=== PATIENT | male | born 1985 | race Caucasian/White ===

== ENCOUNTER 2019-08-25 08:54 | Emergency (ER) | payer OTHER ==
[~2019-08-25] VITALS: Ht 165.1 cm; Wt 97.1 kg
--- OUTSIDE RECORDS SUMMARY | 2019-08-25 08:58 | XMS ---
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 Ciara has no Care Guidelines for this patient. [facility] VISIT COUNT (12 MO.) 1 KAVIN Bernstein TOTAL 1 NOTE: Visits indicate total known visits. ED/C VISIT TRACKING (12 MO.) 08/25/2019 08:55 [facility]IN Tavarez [facility] TYPE: Emergency COMPLAINT: - DENTAL PAIN INPATIENT VISIT TRACKING (12 MO.) No inpatient visits to display in this time frame [email or web address]
[2019-08-25] MEDS ORDERED: PENICILLIN V P500 MG PO (09:24)
== END 2019-08-25 09:34 | disposition home or self-care (01) ==
LOC: ED 08:54
DX: K04.7 Periapical abscess without sinus (principal); F17.200 Nicotine dependence, unspecified, uncomplicated
CPT/HCPCS: 99283

== ENCOUNTER 2022-08-02 13:04 | Emergency (ER) | payer OTHER ==
[~2022-08-02] VITALS: Ht 165.1 cm; Wt 90.4 kg
[~2022-08-02 13:04] MED LIST: PENICILLIN V P500 MG PO
== END 2022-08-02 14:07 | disposition home or self-care (01) ==
LOC: ED 13:04
DX: M54.50 Low back pain, unspecified (principal); K59.00 Constipation, unspecified; F17.200 Nicotine dependence, unspecified, uncomplicated
CPT/HCPCS: 99283

== ENCOUNTER 2022-09-09 06:17 | Emergency (ER) | payer OTHER ==
[~2022-09-09] VITALS: Ht 165.1 cm; Wt 90.3 kg
== END 2022-09-09 06:52 | disposition home or self-care (01) ==
LOC: ED 06:17
DX: T40.711A Poisoning by cannabis, accidental (unintentional), initial encounter (principal); F17.200 Nicotine dependence, unspecified, uncomplicated
CPT/HCPCS: 99283

== ENCOUNTER 2022-12-27 12:05 | Emergency (ER) | payer OTHER ==
[~2022-12-27] VITALS: Ht 165.1 cm; Wt 81.8 kg
--- OUTSIDE RECORDS SUMMARY | ~2022-12-27 | XMS | Continuity of Care Document ---
Demographics + + + | Address | [address] | | | [place] [address] | + + + | Preferred Language | Unknown | + + + | Marital Status | Never | + + + | Sabianism Affiliation | Unknown | + + + | Race | White | + + + | Ethnic Group | Not or | + + + Author + + + | Author | [facility] | + + + | Organization | [facility] | + + + | Address | [address] | | | [place] [address] | + + + | Phone | | + + + Care Team Providers + + + + | Care Creative Arts Therapist Name | Role | Phone | + + + + Unavailable | Unavailable | + + + + Unavailable | Unavailable | + + + + Allergies No information. Encounters No information. Functional Status No information. Immunizations No information. Medications No information. Problems + + + + | date | description | facility | + + + + | 2014-08-14 00:00 | Patient left without being | [facility] | | | seen | | + + + + | 2022-08-02 00:00 | Constipation | [facility] | + + + + | 2022-08-02 00:00 | Back pain | [facility] | + + + + Procedures No information. Results/Labs No information. Social History No information. Vital Signs + + + +---------+ | date | measurement | value | units | + + + +---------+ | 2022-08-02 00:00 | BMI | 33.2 | kg/m2 | + + + +---------+ | 2022-08-02 00:00 | BP_diastolic | 86 | mmHg | + + + +---------+ | 2022-08-02 00:00 | BP_systolic | 125 | mmHg | + + + +---------+ | 2022-08-02 00:00 | heart_rate | 79 | /min | + + + +---------+ | 2022-08-02 00:00 | height_metric | 165.1 | cm | + + + +---------+ | 2022-08-02 00:00 | height_standard | 65 | in | + + + +---------+ | 2022-08-02 00:00 | o2_saturation | 98 | % | + + + +---------+ | 2022-08-02 00:00 | respiration_rate | 16 | /min | + + + +---------+ | 2022-08-02 00:00 | temperature_metric | 36.67 | C | | | | | | + + + +---------+ | 2022-08-02 00:00 | | 98 | F | | | temperature_standar | | | | | d | | | + + + +---------+ | 2022-08-02 00:00 | weight_metric | 90.4 | kg | + + + +---------+ | 2022-08-02 00:00 | weight_standard | 199.3 | lb | + + + +---------+ | 2022-09-09 00:00 | BMI | 33.1 | kg/m2 | + + + +---------+ | 2022-09-09 00:00 | BP_diastolic | 81 | mmHg | + + + +---------+ | 2022-09-09 00:00 | BP_systolic | 132 | mmHg | + + + +---------+ | 2022-09-09 00:00 | heart_rate | 83 | /min | + + + +---------+ | 2022-09-09 00:00 | height_metric | 165.1 | cm | + + + +---------+ | 2022-09-09 00:00 | height_standard | 65 | in | + + + +---------+ | 2022-09-09 00:00 | o2_saturation | 96 | % | + + + +---------+ | 2022-09-09 00:00 | respiration_rate | 12 | /min | + + + +---------+ | 2022-09-09 00:00 | temperature_metric | 35.61 | C | | | | | | + + + +---------+ | 2022-09-09 00:00 | | 96.1 | F | | | temperature_standar | | | | | d | | | + + + +---------+ | 2022-09-09 00:00 | weight_metric | 90.26 | kg | + + + +---------+ | 2022-09-09 00:00 | weight_standard | 198.99 | lb | + + + +---------+ | 2022-09-09 00:00 | weight_standard | 199 | lb | + + + +---------+"
--- OUTSIDE RECORDS SUMMARY | ~2022-12-27 | XMS | Continuity of Care Document ---
Demographics + + + | Address | [address] | | | [place] [address] | + + + | Preferred Language | Unknown | + + + | Marital Status | Never | + + + | Yazdanism Affiliation | Unknown | + + + | Race | White | + + + | Ethnic Group | Not or | + + + Author + + + | Author | [facility] | + + + | Organization | [facility] | + + + | Address | [address] | | | [place] [address] | + + + | Phone | | + + + Care Team Providers + + + + | Care Forklift Truck Operator Name | Role | Phone | + [...] 00:00 | Patient left without being | [facility] | | | seen | | + + + + | 2022-08-02 00:00 | Constipation | [facility] | + + + + | 2022-08-02 00:00 | Back pain | [facility] | + + + + Procedures No [...]
[2022-12-27] MEDS ORDERED: CEPHALEXIN500 M1 PO (12:57)
[2022-12-27 13:17] VITALS: BP 124/92
== END 2022-12-27 13:18 | disposition home or self-care (01) ==
LOC: ED 12:05
DX: S01.84XA Puncture wound with foreign body of other part of head, initial encounter (principal); W26.8XXA Contact with other sharp object(s), not elsewhere classified, initial encounter; F17.200 Nicotine dependence, unspecified, uncomplicated; Z23 Encounter for immunization
CPT/HCPCS: 90471; 90715; 99283 25

== ENCOUNTER 2024-06-12 18:08 | Emergency (ER) | payer OTHER ==
[~2024-06-12] VITALS: Ht 165.1 cm; Wt 79.8 kg
[~2024-06-12 18:08] MED LIST changes: +CEPHALEXIN500 M1 PO; +CLINDAMYCIN HC150 MG PO; +DOXYCYCLINE HY100 MG PO
[2024-06-12 20:48] LABS: INFLUENZA B NAA NEGATIVE (NEGATIVE); RESPIRATORY SYNCYTIAL VIR NAA NEGATIVE (NEGATIVE)
[2024-06-12] MEDS ORDERED: methylPREDNISolone 4 MG HOME.PACK PO ONE (21:00)
[2024-06-12 21:12] VITALS: BP 120/84
== END 2024-06-12 21:13 | disposition home or self-care (01) ==
LOC: ED 18:08
PROVIDERS: Family Medicine
DX: J40 Bronchitis, not specified as acute or chronic (principal); F17.200 Nicotine dependence, unspecified, uncomplicated; Z79.899 Other long term (current) drug therapy
CPT/HCPCS: 71045; 87502; 99283-25; U0002

== ENCOUNTER 2024-11-23 16:00 | Emergency (ER) | payer OTHER ==
[~2024-11-23] VITALS: Ht 165.1 cm; Wt 77.7 kg
[2024-11-23] MEDS ORDERED: DIPHTH,PERTUSS(ACELL),TET VAC 0.5 ML SYRINGE IM ONE (16:15)
[2024-11-23 17:11] VITALS: BP 141/78
== END 2024-11-23 17:13 | disposition home or self-care (01) ==
LOC: ED 16:00
DX: S61.412A Laceration without foreign body of left hand, initial encounter (principal); F17.200 Nicotine dependence, unspecified, uncomplicated; W26.0XXA Contact with knife, initial encounter
CPT/HCPCS: 12001; 90471; 90715; 99282-25